=== PATIENT | female | born 1965 | race American Indian/Alaskan Native ===

== ENCOUNTER 2020-03-27 08:13 | Day surgery (SDC) | payer BC ==
[~2020-03-27 08:13] MED LIST: MIDAZOLAM 2 MG/2 ML INJ IV NR; SODIUM CHLORIDE 0.9% 1000 ML 1,000 ML IV SCH; fentaNYL 100 MCG/2 ML INJ IV PRN
[2020-03-27 09:31] LABS: Hematocrit 28.3 % (30.3-42.9); Hemoglobin 9.1 gm/dl (10.1-14.3); Mean Corpuscular HGB Conc 32 % (30-34); Mean Corpuscular Volume 84 fl (79-97); Platelet Count 269 K/mm3 (140-440); Red Blood Count 3.36 M/mm3 (3.65-5.03); Red Cell Distribution Width 17.2 % (13.2-15.2)
[2020-03-27 09:44] LABS: Calcium 8.5 mg/dL (8.4-10.2)
[2020-03-27] MEDS ORDERED: fentaNYL 100 MCG/2 ML INJ IV PRN (09:52)
--- NOTE | 2020-03-27 09:52 | Anesthesia Consultation ---
Anesthesia Consult and Med Hx Date of service: 03/27/20 - Airway Anesthetic Teeth Evaluation: Poor (loose left lower molar) ROM Head & Neck: Adequate Mental/Hyoid Distance: Adequate Mallampati Class: Class III Intubation Access Assessment: Possibly Difficult - Pulmonary Exam CTA: Yes - Cardiac Exam Cardiac Exam: RRR - Pre-Operative Health Status ASA Pre-Surgery Classification: ASA3 Proposed Anesthetic Plan: General - Pulmonary Hx Smoking: Yes (1/2 PPD x25yrs) Hx Respiratory Symptoms: No - Cardiovascular System Hx Hypertension: Yes (took antihypertensives yesterday PM) Hx Heart Attack/AMI: No Hx Percutaneous Transluminal Coronary Angioplasty (PTCA): No Hx Cardia Arrhythmia: No - Central Nervous System CVA: No Hx Back Pain: Yes - Gastrointestinal Hx Gastroesophageal Reflux Disease: No - Endocrine Hx Renal Disease: Yes (CKD stage 5 not yet on HD) Hx Liver Disease: No Hx Insulin Dependent Diabetes: No Hx Non-Insulin Dependent Diabetes: No Hx Thyroid Disease: No - Hematic Hx Anemia: Yes - Other Systems Hx Substance Use: Yes (occasional CBD) Hx Obesity: Yes (BMI 44) - Additional Comments Anesthesia Medical History Comments: No hx anesthetic complications.
--- NOTE | 2020-03-27 09:52 | Anesthesia Day of Surgery ---
Anesthesia Day of Surgery - Day of Surgery Patient Examined: Yes Patient H&P Reviewed: Yes Patient is NPO: Yes
[2020-03-27] MEDS ORDERED: ceFAZolin/STERILE WATER 2 GM/20 ML SYRINGE IV NR (10:00)
[2020-03-27] MEDS ORDERED: LIDOCAINE MPF (2%) 20 MG/1 ML VIAL 5 ML ONE ×2 (12:34→14:21)
[2020-03-27] MEDS ORDERED: fentaNYL 100 MCG/2 ML INJ ONE ×2 (12:34→14:21)
[2020-03-27] MEDS ORDERED: propofoL 200 MG/20 ML VIAL IV ONE ×2 (12:34→14:21)
[2020-03-27] MEDS ORDERED: HEPARIN 10,000 UNITS/10 ML VIAL ONE (12:44)
[2020-03-27] MEDS ORDERED: BUPIVACAINE/PF (0.5%) 5 MG/1 ML 30 ML VIAL INFILTRATI ONE ×2 (12:44→13:35)
[2020-03-27] MEDS ORDERED: SODIUM CHLORIDE 0.9% 500 ML 500 ML ONE (12:45)
[2020-03-27] MEDS ORDERED: SUCCINYLCHOLINE CHLORIDE 200 MG/10 ML INJ MDV ONE (13:26)
[2020-03-27] MEDS ORDERED: dexAMETHasone 20 MG/5 ML VIAL ONE (13:26)
[2020-03-27] MEDS ORDERED: ROCURONIUM 50 MG/5 ML INJ IV ONE ×2 (13:26→14:21)
[2020-03-27] MEDS ORDERED: SODIUM CHLORIDE 0.9% IRR 1,500 ML BOTTLE IR ONE (13:35)
[2020-03-27] MEDS ORDERED: HEPARIN 10,000 UNITS/10 ML VIAL IV ONE (13:36)
[2020-03-27] MEDS ORDERED: SODIUM CHLORIDE 0.9% 500 ML IVPB IRRIGATION ONE (13:36)
--- NOTE | 2020-03-27 14:19 | Short Stay Summary ---
Short Stay Documentation Date of service: 03/27/20 Narrative H&P: See H&P - Allergies and Medications Current Medications: Allergies shellfish derived Allergy (Verified 03/26/20 15:09) Itching, swelling iv dye Allergy (Uncoded 03/26/20 15:09) Anaphylaxis Home Medications Medication Instructions Recorded Confirmed Last Taken Type Acetaminophen 500 mg PO Q8HR 03/27/20 03/27/20 03/20/20 09:00 History Amlodipine Besylate 10 mg PO DAILY 03/27/20 03/27/20 03/26/20 17:00 History Calcitriol 0.5 mg PO DAILY 03/27/20 03/27/20 03/26/20 09:00 History Duloxetine HCl 30 mg PO DAILY 03/27/20 03/27/20 03/26/20 14:00 History Furosemide 40 mg PO PRN 03/27/20 03/27/20 Unknown History Gabapentin 300 mg PO Q6HR 03/27/20 03/27/20 03/20/20 09:00 History Tramadol HCl 50 mg PO Q6HR 03/27/20 03/27/20 03/26/20 21:00 History Valsartan 320 mg PO DAILY 03/27/20 03/27/20 03/26/20 17:00 History Active Medications Cefazolin Sodium (Cefazolin/Sterile Water 2 Gm/20 Ml Syringe) 2 gm IV PREOP NR Stop: 03/27/20 16:00 Fentanyl (Fentanyl 100 Mcg/2 Ml Inj) 50 mcg IV Q5MIN PRN PRN Reason: Pain , Severe (7-10) Sodium Chloride (Nacl 0.9% 1000 Ml) 1,000 mls @ 42 mls/hr IV DIRECT STACI Stop: 03/27/20 23:59 Last Admin: 03/27/20 10:45 Dose: 42 mls/hr Documented by: Midazolam HCl (Midazolam 2 Mg/2 Ml Inj) 2 mg IV PREOP NR Stop: 03/27/20 23:59 - Brief post op/procedure progress note Date of procedure: 03/27/20 Pre-op diagnosis: Chronic Renal Insufficiency Post-op diagnosis: same Procedure: Creation of Left Brachiocephalic Arteriovenous Fistula Anesthesia: GETA Surgeon: LILIANE MATSON Estimated blood loss: minimal Pathology: none Condition: stable - Disposition Condition at discharge: Good Disposition: DC-01 TO HOME OR SELFCARE Short Stay Discharge Plan Activity: other (No heavy lifting with left arm for 2 weeks.) Wound: open to air, keep clean and dry, other (Okay to wash the wound with soap and water but do not soak in water for 2 weeks.) Follow up with: LILIANE MATSON MD [Staff Physician] - 14 Days Prescriptions: HYDROcodone/APAP 7.5-325 [[place] 7.5/325] 1 each PO Q6HR PRN #30 tablet PRN Reason: Pain
[2020-03-27] MEDS ORDERED: ONDANSETRON 4 MG/2 ML INJ ONE ×2 (14:21)
--- NOTE | 2020-03-27 14:21 | Operative Report ---
Operative Report Operative Report: Date of procedure: 03/27/2020 Pre-operative diagnosis: Chronic Renal Sufficiency Post-operative diagnosis: Same Procedure(s): 1. Creation of Left Brachial Artery to Cephalic Vein Arteriovenous Fistula Surgeon: Andrey Martinez MD Educational Manager: None Anesthesia: General Endotracheal Anesthesia EBL: Minimal Counts: Correct Complications: None Condition: Stable Findings: Successful creation of left brachiocephalic arteriovenous fistula with palpable thrill and palpable radial pulse at the completion of the case. Specimen: None Indications: The patient is a 55-year-old male with a history of chronic renal insufficiency who is in need of long-term dialysis access in anticipation of needing dialysis within the next several months. She had a vein mapping that demonstrated she was an adequate candidate for creation of an arteriovenous fistula. She was given the risk, benefits, and alternative procedures of creation of an arteriovenous fistula and consented to the procedure. Description of Procedure: The patient was brought to the operating room and laid in supine position. After general endotracheal anesthesia was achieved A transverse incision was then made and carried down to the cephalic vein using sharp dissection. The vein was dissected out both proximally and distally and suture ligated and divided distally. I then ran a 3 Clara proximally in the vein, to ensure patency of the vein. Then flushed the vein with heparinized saline and flow was controlled with a bulldog clamp. I then dissected out the brachial artery through this incision circumferentially both proximal and distal and controlled the artery with vessel loops. I systemically heparinized the patient with 3000 units of heparin IV and used angled DeBakey clamps to control flow through the artery. I created an arteriotomy using an 11 blade and Gordon scissors. I created an end to side anastomosis between the cephalic vein and brachial artery using a 6-0 Prolene in running fashion. Prior to completing the anastomosis I flushed the artery both proximally and distally and then advanced a 3 Clara proximally to break the spasm in the artery. I then completed the anastomosis and removed all clamps allowing flow into the fistula which had an adequate thrill. I achieved hemostasis with a combination of Quick Clot and electrocautery. Once hemostasis had been achieved I closed the wound in 2 layers using a 3-0 Vicryl in a running fashion in the deep dermal layer and a 4- 0 Monocryl in running fashion in the subcuticular layer. I then dressed the wound with Dermabond. The patient tolerated the procedure well. All sponge, needle, and instrument counts were correct. The patient was taken to the recovery area in stable condition.
[2020-03-27] MEDS ORDERED: HYDROcodone/ACETAMINOPHEN 7.5-325MG TAB PO PRN (14:41)
--- NOTE | 2020-03-27 15:37 | Post Anesthesia Evaluation ---
- Post Anesthesia Evaluation Patient Participated: Yes Airway Patent: Yes Stable Respiratory Function: Yes Nausea/Vomiting: No Temp > 96.8F: Yes Pain Manageable: Yes Adequeate Hydration: Yes Anesthesia Complications: No
[2020-03-27] MEDS ORDERED: PHENYLEPHRINE 10 MG/1 ML INJ SDV ONE (16:00)
[2020-03-27 16:04] VITALS: BP 154/71
== END 2020-03-27 08:14 | disposition home or self-care (01) ==
LOC: OR 08:13
PROVIDERS: ATTEND Surgery Vascular Surgery
DX: I12.0 Hypertensive chronic kidney disease with stage 5 chronic kidney disease or end stage renal disease (principal); N18.6 End stage renal disease; F17.210 Nicotine dependence, cigarettes, uncomplicated; E78.00 Pure hypercholesterolemia, unspecified; E66.9 Obesity, unspecified; M19.90 Unspecified osteoarthritis, unspecified site; Z72.89 Other problems related to lifestyle; Z91.013 Allergy to seafood; Z88.8 Allergy status to other drugs, medicaments and biological substances; Z79.899 Other long term (current) drug therapy; Z90.49 Acquired absence of other specified parts of digestive tract; Z98.890 Other specified postprocedural states; Z98.891 History of uterine scar from previous surgery; Z86.718 Personal history of other venous thrombosis and embolism
CPT/HCPCS: 36415; 36821; 80048; 85027; J0330; J0690; J1100; J1644; J2370; J2405; J2704; J3010; J7030; J7040

== ENCOUNTER 2020-11-13 06:17 | Day surgery (SDC) | payer BC ==
[~2020-11-13 06:17] MED LIST changes: +HEPARIN 10,000 UNITS/10 ML VIAL IV ONE; -MIDAZOLAM 2 MG/2 ML INJ IV NR; -SODIUM CHLORIDE 0.9% 1000 ML 1,000 ML IV SCH; +SODIUM CHLORIDE 0.9% 250 ML IVPB IV ONE; +SODIUM CHLORIDE 0.9% 500 ML IVPB IV ONE; +SODIUM CHLORIDE 0.9% IRR 1,500 ML BOTTLE IR ONE; +SODIUM CHLORIDE 0.9% P/F 10 ML VIAL IV ONE; +ceFAZolin/STERILE WATER 2 GM/20 ML SYRINGE IV NR; -fentaNYL 100 MCG/2 ML INJ IV PRN; +rifAMPin 600 MG VIAL IV ONE
[2020-11-13] MEDS ORDERED: SODIUM CHLORIDE 0.9% 1000 ML 1,000 ML IV SCH (07:00)
[2020-11-13] MEDS ORDERED: LIDOCAINE (1%) 10 MG/1 ML VIAL 20 ML MDV ONE (07:14)
[2020-11-13] MEDS ORDERED: SODIUM CHLORIDE P/F VIAL 10 ML 10 ML ONE (07:14)
[2020-11-13] MEDS ORDERED: rifAMPin 600 MG VIAL ONE (07:14)
[2020-11-13] MEDS ORDERED: BUPIVACAINE/PF (0.5%) 5 MG/1 ML 30 ML VIAL INFILTRATI ONE ×2 (07:14→07:55)
[2020-11-13] MEDS ORDERED: HEPARIN 10,000 UNITS/10 ML VIAL ONE (07:14)
[2020-11-13] MEDS ORDERED: ePHEDrine SULFATE 50 MG/1 ML INJ ONE (07:15)
[2020-11-13] MEDS ORDERED: SODIUM CHLORIDE 0.9% 500 ML 500 ML ONE (07:15)
[2020-11-13] MEDS ORDERED: propofoL 200 MG/20 ML VIAL IV ONE ×7 (07:15→09:37)
[2020-11-13] MEDS ORDERED: SODIUM CHLORIDE 0.9% 250ML 250 ML ONE (07:15)
--- NOTE | 2020-11-13 07:49 | Anesthesia Consultation ---
Anesthesia Consult and Med Hx Date of service: 11/13/20 - Airway Anesthetic Teeth Evaluation: Good ROM Head & Neck: Adequate Mental/Hyoid Distance: Adequate Mallampati Class: Class I Intubation Access Assessment: Probably Good - Pulmonary Exam CTA: Yes - Cardiac Exam Cardiac Exam: RRR - Pre-Operative Health Status ASA Pre-Surgery Classification: ASA3 Proposed Anesthetic Plan: MAC Nerve Block: supraclavicular - Pulmonary Hx Smoking: Yes (CIGARETTES 1/2 PACK/DAY) Hx Respiratory Symptoms: No Hx Sleep Apnea: No - Cardiovascular System Hx Hypertension: Yes Hx Heart Attack/AMI: No Hx Percutaneous Transluminal Coronary Angioplasty (PTCA): No Hx Cardia Arrhythmia: No - Central Nervous System CVA: No Hx Back Pain: Yes (LUMBAR STONDYOLISTHESIS) Hx Psychiatric Problems: No - Gastrointestinal Hx Gastroesophageal Reflux Disease: No - Endocrine Hx Renal Disease: Yes (HD MWF; done yesterday) Hx End Stage Renal Disease: Yes Hx Liver Disease: No Hx Insulin Dependent Diabetes: No Hx Non-Insulin Dependent Diabetes: No Hx Thyroid Disease: No - Hematic Hx Anemia: Yes - Other Systems Hx Alcohol Use: No Hx Substance Use: Yes (SMOKES MARIJUANA EVERY OTHER DAY) Hx Cancer: No Hx Obesity: Yes (BMI 44) - Additional Comments Anesthesia Medical History Comments: No GAC, no FHAC
--- NOTE | 2020-11-13 07:53 | Anesthesia Day of Surgery ---
Anesthesia Day of Surgery - Day of Surgery Patient Examined: Yes Patient H&P Reviewed: Yes Patient is NPO: Yes Beta Blockers: No Cardiac Clearance: No Pulmonary Clearance: No Juve's Test: N/A
[2020-11-13] MEDS ORDERED: MIDAZOLAM 2 MG/2 ML INJ ONE ×2 (07:54→09:23)
[2020-11-13] MEDS ORDERED: fentaNYL 100 MCG/2 ML INJ ONE ×2 (07:55→08:07)
[2020-11-13 07:58] LABS: Hematocrit 33.6 % (30.3-42.9); Hemoglobin 11.4 gm/dl (10.1-14.3); Mean Corpuscular HGB Conc 34 % (30-34); Mean Corpuscular Volume 91 fl (79-97); Platelet Count 231 K/mm3 (140-440); Red Blood Count 3.69 M/mm3 (3.65-5.03); Red Cell Distribution Width 16.9 % (13.2-15.2)
[2020-11-13 08:12] LABS: Calcium 8.7 mg/dL (8.4-10.2)
--- NOTE | 2020-11-13 08:31 | Short Stay Summary ---
Short Stay Documentation Date of service: 11/13/20 Narrative H&P: The patient is a 55-year-old female with a history of end-stage renal disease who had a previous creation of a left brachiocephalic arteriovenous fistula that failed secondary to occlusion of her brachial artery. She had endovascular procedure to revascularize the brachial artery however her fistula was unable to be salvaged. At the time of her initial creation of her fistula she was not on hemodialysis however she has since progressed to hemodialysis and is on dialysis through a right internal jugular permacath. She is now in need of long-term dialysis access and does not have adequate vein for creation of a fistula. She will require creation of an arteriovenous graft and given that she is right-hand dominant this will be placed in her left upper extremity. She was given the risk, benefits, and alternative procedures and consented to the procedure. - History Past Medical History: anemia, diabetes, dialysis, DVT, ESRD, heart failure, hypertension, hyperlipidemia, pulmonary embolism Past Surgical History: Other (Creation of left AVF, Permacath placement) - Allergies and Medications Current Medications: Allergies lisinopril Allergy (Verified 10/30/20 12:53) Swelling shellfish derived Allergy (Verified 10/30/20 12:53) Itching, swelling iv dye Allergy (Uncoded 10/30/20 12:53) Anaphylaxis Home Medications Medication Instructions Recorded Confirmed Last Taken Type Acetaminophen 500 mg PO Q8HR PRN 03/27/20 10/30/20 11/12/20 History Duloxetine HCl 30 mg PO DAILY 03/27/20 10/30/20 11/12/20 History Tramadol HCl 50 mg PO Q8H PRN 03/27/20 10/30/20 11/12/20 History Clopidogrel [Plavix] 75 mg PO QDAY 10/10/20 10/30/20 11/12/20 History Ergocalciferol (Vitamin D2) 1,250 mcg PO 1XW 10/10/20 11/13/20 11/09/20 History [Drisdol] Active Medications Cefazolin Sodium (Cefazolin/Sterile Water 2 Gm/20 Ml Syringe) 2 gm IV PREOP NR Stop: 11/13/20 23:59 Sodium Chloride (Nacl 0.9% 1000 Ml) 1,000 mls @ 42 mls/hr IV DIRECT STACI - Physical exam General appearance: no acute distress Lungs: Normal air movement Breasts: deferred Heart: Regular rate Gastrointestinal: normal Female Genitourinary: deferred Rectal Exam: deferred Extremities: no ischemia, pulses intact - Brief post op/procedure progress note Date of procedure: 11/13/20 Pre-op diagnosis: End-Stage Renal Disease Post-op diagnosis: same Procedure: Creation of Left Brachial Artery to Left Axillary Vein Arteriovenous Graft with 6 mm Bovine Artegraft Anesthesia: MAC, regional Surgeon: LILIANE MATSON Estimated blood loss: minimal Pathology: none Condition: stable - Disposition Condition at discharge: Good Disposition: 01 HOME / SELF CARE / HOMELESS Short Stay Discharge Plan Activity: other (No heavy lifting with left arm for 2 weeks.) Wound: open to air, keep clean and dry, other (Okay to wash the left arm wounds with soap and water but do not soak in water for 2 weeks.) Follow up with: LILIANE MATSON MD [Staff Physician] - 14 Days Prescriptions: HYDROcodone/APAP 5-325 [[place] 5/325] 1 each PO Q4HR PRN #30 tablet PRN Reason: Pain
[2020-11-13] MEDS ORDERED: PHENYLEPHRINE 10 MG/1 ML INJ SDV ONE (09:27)
[2020-11-13] MEDS ORDERED: HEPARIN 10,000 UNITS/10 ML VIAL IV ONE (09:30)
[2020-11-13] MEDS ORDERED: SODIUM CHLORIDE 0.9% 500 ML IVPB IV ONE (09:30)
[2020-11-13] MEDS ORDERED: SODIUM CHLORIDE 0.9% 250 ML IVPB IV ONE (09:30)
[2020-11-13] MEDS ORDERED: rifAMPin 600 MG VIAL IV ONE (09:30)
[2020-11-13] MEDS ORDERED: SODIUM CHLORIDE 0.9% IRR 1,500 ML BOTTLE IR ONE (09:30)
[2020-11-13] MEDS ORDERED: SODIUM CHLORIDE 0.9% P/F 10 ML VIAL IV ONE (09:30)
--- NOTE | 2020-11-13 11:09 | Operative Report ---
Operative Report Operative Report: Date of procedure: 11/13/2020 Pre-operative diagnosis: End-Stage Renal Disease Post-operative diagnosis: Same Procedure(s): 1. Creation of Left Brachial Artery to Axillary Vein AV Graft with 6 mm Bovine Graft Artergraft Surgeon: Andrey Martinez MD Studio Associate: None Anesthesia: Regional/MAC EBL: Minimal Counts: Correct Complications: None Condition: Stable Findings: Successful Creation of Left Arm AV Graft with Palpable Thrill and Palpable Radial Pulse at the Completion of the Case. Specimen: None Indication: The patient is a 55-year-old female with a history of end-stage renal disease who had a previous creation of a left brachiocephalic arteriovenous fistula that failed. She is in need of long-term dialysis access and requires creation of an arteriovenous graft. She was given the risk, benefits, and alternative procedures and consented to the procedure. Description of Procedure: Prior to being transported to the operating room the patient had a regional block of the left arm performed. After the block was performed the patient was transported to the operating room and adequately sedated. The patient's left arm was then prepped and draped in normal sterile fashion. A longitudinal incision was made on the medial aspect of the arm just proximal to the antecubital crease and carried down to the brachial artery using sharp dissection. The brachial artery was dissected out circumferentially both proximally and distally and controlled with vessel loops. A second incision was created in longitudinal fashion on the medial aspect of the arm just distal to the axillary crease and carried down to the axillary vein using sharp dissection. Axillary vein was dissected out circumferentially and controlled with a vessel loop. I then used a Marcela-Wick tunneler to tunnel from the brachial artery incision to the axillary vein incision and then pulled an 6 mm bovine through the tunnel. I infused with heparinized saline to ensure that it was not twisted or kinked. I put the brachial artery vessel loops on tension controlling the flow and then created an arteriotomy using an 11 blade and Gordon scissors. I beveled the graft and created an end-to-side anastomosis using 6-0 Prolene running fashion. I clamped the graft just proximal to the anastomosis and then released the vessel loops restoring flow in the brachial artery. I placed quick clot in incision to achieve hemostasis. I cut the proximal end of the graft to the appropriate length and beveled the graft in preparation for a venous anastomosis. I controlled the axillary vein a Satinsky clamp and created a venotomy using an 11 blade and Gordon scissors. I created an end to side anastomosis using a 6-0 Prolene in running fashion. Prior to completing the anastomosis I flushed the graft to ensure there was no thrombus and then completed the anastamosis. I released all clamps allowing flow into the AV graft which had an excellent thrill. I packed the wound with quick clot to achieve hemostasis. I closed both wounds in 2 layers using 3-0 Vicryl in running fashion in the deep dermal layer and 4-0 Monocryl in running fashion the subcuticular layer. I dressed both wounds with Dermabond. The patient tolerated the procedure well all sponge, needle, and instrument counts were correct. The patient was taken to recovery in stable condition.
[2020-11-13] MEDS ORDERED: ONDANSETRON 4 MG/2 ML INJ IV PRN (11:21)
[2020-11-13] MEDS ORDERED: HYDROmorphone 1 MG/1 ML INJ IV PRN (11:21)
[2020-11-13] MEDS ORDERED: HYDROmorphone 1 MG/1 ML INJ ONE (11:22)
[2020-11-13] MEDS: HYDROmorphone 1 MG/1 ML INJ IV PRN ×3 (11:23→11:43)
[2020-11-13] MEDS ORDERED: HYDROcodone/ACETAMINOPHEN 5-325 MG TAB PO PRN (12:00)
[2020-11-13 12:13] VITALS: BP 119/77
--- NOTE | 2020-11-13 15:30 | Post Anesthesia Evaluation ---
- Post Anesthesia Evaluation Patient Participated: Yes Airway Patent: Yes Stable Respiratory Function: Yes Nausea/Vomiting: No Temp > 96.8F: Yes Pain Manageable: Yes Adequeate Hydration: Yes Anesthesia Complications: No Block Receding Appropriately: Yes Patient on Ventilator: No
== END 2020-11-13 12:55 | disposition home or self-care (01) ==
LOC: OR 06:17
PROVIDERS: ATTEND Surgery Vascular Surgery
DX: I12.0 Hypertensive chronic kidney disease with stage 5 chronic kidney disease or end stage renal disease (principal); N18.6 End stage renal disease; E78.00 Pure hypercholesterolemia, unspecified; E66.9 Obesity, unspecified; M06.9 Rheumatoid arthritis, unspecified; F17.210 Nicotine dependence, cigarettes, uncomplicated; Z90.49 Acquired absence of other specified parts of digestive tract; Z98.890 Other specified postprocedural states; Z79.899 Other long term (current) drug therapy; Z91.013 Allergy to seafood; Z88.8 Allergy status to other drugs, medicaments and biological substances; Z68.41 Body mass index [BMI] 40.0-44.9, adult
CPT/HCPCS: 36415; 36830; 80048; 85027; C1768; J0690; J1170; J1644; J2250; J2370; J2704; J3010; J3490; J7030; J7040; J7050

== ENCOUNTER 2021-06-11 07:40 | Day surgery (SDC) | payer BC, MEDICAID ==
[~2021-06-11 07:40] MED LIST changes: +BUPIVACAINE/PF (0.5%) 5 MG/1 ML 30 ML VIAL INFILTRATI ONE; -HEPARIN 10,000 UNITS/10 ML VIAL IV ONE; +HEPARIN 10,000 UNITS/10 ML VIAL ONE; +LIDOCAINE (1%) 10 MG/1 ML VIAL 20 ML MDV ONE; -SODIUM CHLORIDE 0.9% 250 ML IVPB IV ONE; +SODIUM CHLORIDE 0.9% 250ML 0 ML ONE; +SODIUM CHLORIDE 0.9% 500 ML 500 ML ONE; -SODIUM CHLORIDE 0.9% 500 ML IVPB IV ONE; -SODIUM CHLORIDE 0.9% IRR 1,500 ML BOTTLE IR ONE; -SODIUM CHLORIDE 0.9% P/F 10 ML VIAL IV ONE; -rifAMPin 600 MG VIAL IV ONE
[2021-06-11 08:14] LABS: Hematocrit 36.3 % (30.3-42.9); Hemoglobin 11.6 gm/dl (10.1-14.3); Mean Corpuscular HGB Conc 32 % (30-34); Mean Corpuscular Volume 93 fl (79-97); Platelet Count 294 K/mm3 (140-440); Red Cell Distribution Width 17.2 % (13.2-15.2)
[2021-06-11] MEDS ORDERED: HYDROmorphone 1 MG/1 ML INJ ONE (08:19)
[2021-06-11] MEDS ORDERED: propofoL 200 MG/20 ML VIAL IV ONE ×2 (08:19→09:00)
[2021-06-11] MEDS ORDERED: SODIUM CHLORIDE 0.9% 1000 ML 1,000 ML ONE (08:20)
[2021-06-11] MEDS ORDERED: LIDOCAINE MPF (2%) 20 MG/1 ML VIAL 5 ML ONE (08:20)
[2021-06-11] MEDS ORDERED: HYDROmorphone 1 MG/1 ML INJ IV PRN ×2 (08:21→08:30)
--- NOTE | 2021-06-11 08:22 | Anesthesia Day of Surgery ---
Anesthesia Day of Surgery - Day of Surgery Patient Examined: Yes Patient H&P Reviewed: Yes Patient is NPO: Yes
--- NOTE | 2021-06-11 08:23 | Short Stay Summary ---
Short Stay Documentation Date of service: 06/11/21 Narrative H&P: The patient is a 56-year-old female with a history of end-stage renal disease who presented to the office with a thrombosed left arm arteriovenous graft. She had an attempted percutaneous mechanical thrombectomy however there was such a heavy thrombus burden that it was felt that she would benefit from a revision with open thrombectomy. She had a right internal jugular permacath placed with the plan for revision and open thrombectomy. At this time she is undergoing dialysis without any additional complications. She has no complaints at this time. - History Past Medical History: anemia, DVT, ESRD, hypertension, hyperlipidemia, pulmonary embolism, other (Hypercoagulable disorder) Past Surgical History: Other (Creation of left brachiocephalic arteriovenous fistula, creation of left brachial artery to left axillary vein arteriovenous graft, multiple permacath placements) - Allergies and Medications Current Medications: Allergies lisinopril Allergy (Verified 06/07/21 11:31) Swelling shellfish derived Allergy (Verified 06/07/21 11:31) Itching, swelling iv dye Allergy (Severe, Uncoded 06/07/21 11:31) Anaphylaxis Home Medications Medication Instructions Recorded Confirmed Last Taken Type Acetaminophen 500 mg PO Q8HR PRN 03/27/20 06/07/21 11/12/20 History Duloxetine HCl 30 mg PO DAILY 03/27/20 06/07/21 11/12/20 History Clopidogrel [Plavix] 75 mg PO QDAY 10/10/20 06/07/21 11/12/20 History Ergocalciferol (Vitamin D2) 1,250 mcg PO 1XW 10/10/20 06/07/21 11/09/20 History [Drisdol] Apixaban [Eliquis] 2.5 mg PO BID 06/07/21 06/07/21 Unknown History Calcium Acetate 667 mg PO TID 06/07/21 06/07/21 Unknown History Cinacalcet HCl [Sensipar] 90 mg PO DAILY 06/07/21 06/07/21 Unknown History Active Medications Cefazolin Sodium (Cefazolin/Sterile Water 2 Gm/20 Ml Syringe) 2 gm IV PREOP NR Stop: 06/11/21 23:59 - Physical exam General appearance: no acute distress Lungs: Normal air movement Breasts: deferred Heart: Regular rate Gastrointestinal: normal Female Genitourinary: deferred Rectal Exam: deferred Extremities: abnormal (Left arm arteriovenous graft without palpable pulse or thrill) - Brief post op/procedure progress note Date of procedure: 06/11/21 Pre-op diagnosis: Complications of Dialysis Access Post-op diagnosis: same Procedure: Open Revision of Left Arm Arteriovenous Graft with Revision of the Arterial Anastomosis with Bovine Pericardial Patch and Open Thrombectomy with 6/10 Adherent Graft Thrombectomy Catheter and 4 Clara Anesthesia: GETA Surgeon: LILIANE MATSON Estimated blood loss: other (200 mL) Pathology: list (Thrombus from left arm arteriovenous graft) Specimen disposition: discarded Condition: stable - Disposition Condition at discharge: Good Disposition: 01 HOME / SELF CARE / HOMELESS Short Stay Discharge Plan Activity: other (No heavy lifting with left arm for 2 weeks.) Wound: open to air, keep clean and dry, other (Okay to wash the left arm incision with soap and water but do not soak in water for 2 weeks.) Follow up with: LILIANE MATSON MD [Staff Physician] - 14 Days Prescriptions: HYDROcodone/APAP 7.5-325 [[place] 7.5/325] 1 each PO Q6HR PRN #30 tablet PRN Reason: Pain
--- NOTE | 2021-06-11 08:24 | Anesthesia Consultation ---
Anesthesia Consult and Med Hx Date of service: 06/11/21 - Airway Anesthetic Teeth Evaluation: Good ROM Head & Neck: Adequate Mental/Hyoid Distance: Adequate Mallampati Class: Class II Intubation Access Assessment: Good - Pre-Operative Health Status ASA Pre-Surgery Classification: ASA3 Proposed Anesthetic Plan: General - Pulmonary Hx Smoking: Yes (6 CIGARETTES/DAY) Hx Respiratory Symptoms: No Hx Sleep Apnea: No - Cardiovascular System Hx Hypertension: Yes (In the past) Hx Heart Attack/AMI: No Hx Percutaneous Transluminal Coronary Angioplasty (PTCA): No Hx Cardia Arrhythmia: No Hx Peripheral Vascular Disease: Yes (DVTs) - Central Nervous System CVA: No Hx Back Pain: Yes (LUMBAR STONDYOLISTHESIS) Hx Psychiatric Problems: No - Gastrointestinal Hx Gastroesophageal Reflux Disease: No - Endocrine Hx Renal Disease: Yes (HD MWF; done yesterday) Hx End Stage Renal Disease: Yes Hx Liver Disease: No Hx Insulin Dependent Diabetes: No Hx Non-Insulin Dependent Diabetes: No Hx Thyroid Disease: No - Hematic Hx Anemia: Yes Hx Sickle Cell Disease: No - Other Systems Hx Alcohol Use: Yes (RARELY) Hx Substance Use: No Hx Cancer: No Hx Obesity: Yes (BMI 42) - Additional Comments Anesthesia Medical History Comments: Here [id number] and [id number]
[2021-06-11] MEDS ORDERED: rifAMPin 600 MG VIAL ONE (08:26)
[2021-06-11 08:33] LABS: Calcium 7.9 mg/dL (8.4-10.2)
[2021-06-11] MEDS ORDERED: ONDANSETRON 4 MG/2 ML INJ IV PRN (09:00)
[2021-06-11] MEDS ORDERED: SODIUM CHLORIDE 0.9% 1000 ML 1,000 ML IV SCH (09:00)
[2021-06-11] MEDS ORDERED: MIDAZOLAM 2 MG/2 ML INJ IV NR (09:00)
[2021-06-11] MEDS ORDERED: PHENYLEPHRINE/NS 1,000 MCG/10 ML SYRINGE (OR USE) IV ONE (09:03)
[2021-06-11] MEDS ORDERED: BUPIVACAINE/PF (0.5%) 5 MG/1 ML 30 ML VIAL INFILTRATI ONE (09:29)
[2021-06-11] MEDS ORDERED: SODIUM CHLORIDE 0.9% IRR 1,500 ML BOTTLE IR ONE (09:29)
[2021-06-11] MEDS ORDERED: SODIUM CHLORIDE 0.9% 500 ML IVPB IRRIGATION ONE (09:29)
[2021-06-11] MEDS ORDERED: HEPARIN 10,000 UNITS/10 ML VIAL IV ONE (09:29)
[2021-06-11] MEDS ORDERED: ONDANSETRON 4 MG/2 ML INJ ONE (10:44)
--- NOTE | 2021-06-11 11:01 | Operative Report ---
Operative Report Operative Report: Date of Procedure: 06/11/2021 Pre-operative Diagnosis: Complications of Dialysis Access Post-operative Diagnosis: Same Procedure(s): 1. Open Revision of Left Arm Arteriovenous Graft with Revision of the Arterial Anastomosis with Bovine Pericardial Patch and Open Thrombectomy with 6/10 Adherent Graft Thrombectomy Catheter and 4 Clara Surgeon: Andrey Martinez M.D. Strategic Communications Manager: None Anesthesia: General Endotracheal Anesthesia EBL: 200 mL Counts: Correct Complications: None Condition: Stable Findings: Palpable thrill in left arm arteriovenous graft at the completion of the case. Specimen: Thrombus from the left arm arteriovenous graft was discarded. Indication: The patient is a 56-year-old female with a history of end-stage renal disease who has a left arm arteriovenous graft that thrombosed approximate 1 week ago. She had an attempted percutaneous mechanical thrombectomy that was unsuccessful secondary to the heavy thrombus burden. It was felt that she would benefit from an open thrombectomy. She had a permacath placed for dialysis access and was set up for the procedure. She was given the risk, benefits, and alternative procedures and consented to the procedure. Description of Procedure: The patient was brought to the operating room and laid in supine position. After timeout was performed her left arm was prepped and draped in normal sterile fashion. A longitudinal incision was created on the medial aspect of the arm, near the arterial anastomosis, and carried down to the graft using sharp dissection. The graft was dissected circumferentially approximately 4 cm above the arterial anastomosis a controlled with a vessel loop. The brachial artery was then dissected both proximal and distal to the arterial anastomosis and then controlled with Vesseloops. At this point this patient was systemically heparinized with 3000 units of heparin IV. The brachial artery both proximal and distal to the anastomosis was then controlled with Vesseloops and then an incision was made in the graft using an 11 blade and Gordon scissors. A 6/10 Clara Adherent Graft Thrombectomy Catheter was then advanced into the venous outflow and several passes were made, retrieving thrombus, into the past were free of thrombus and there was adequate venous backbleeding. At that point the graft was flushed with heparinized saline and clamped with a DeBakey clamp. I then used a 4 Clara and retrieved thrombus from the arterial anastomosis however I was unable to pass it into the distal artery. At that point I used a Gordon to extend the graftotomy onto the brachial artery and revealed what appeared to be organized chronic thrombus with near total occlusion of distal portion of the anastomosis. I used a [place] to remove this from the artery and at that point there was adequate backbleeding. I flushed the distal brachial artery with heparinized saline and reclamped the artery and then used a bovine pericardial patch to close the graftotomy using two 6-0 Prolene's in running fashion. Prior to completing the anastomosis I flashed the venous outflow of the graft as well as the brachial artery both proximal distal to the anastomosis and the reclamped all vessels. I flushed the graft with heparinized saline to clear any debris. I completed the closure and then released all clamps allowing flow into the graft which had a palpable thrill. Hemostasis within the wound was achieved with a combination of direct pressure and cautery. Once hemostasis was achieved I anesthetized the wound with 0.5% Marcaine and then closed in 2 layers using 3-0 Vicryl running fashion in the deep dermal layer and 4-0 Monocryl in running fashion the subcuticular layer and then dressed with Dermabond. The patient tolerated the procedure well. All sponge, needle, and instrument counts were correct. The patient was taken to the recovery area in stable condition.
--- NOTE | 2021-06-11 12:20 | Post Anesthesia Evaluation ---
- Post Anesthesia Evaluation Patient Participated: Yes Airway Patent: Yes Stable Respiratory Function: Yes Nausea/Vomiting: No Temp > 96.8F: Yes Pain Manageable: Yes Adequeate Hydration: Yes Anesthesia Complications: No Block Receding Appropriately: Not Applicable Patient on Ventilator: No
[2021-06-11 16:19] VITALS: BP 104/62
== END 2021-06-11 07:41 | disposition home or self-care (01) ==
LOC: OR 07:40
PROVIDERS: ATTEND Surgery Vascular Surgery
DX: T82.868A Thrombosis due to vascular prosthetic devices, implants and grafts, initial encounter (principal); I12.0 Hypertensive chronic kidney disease with stage 5 chronic kidney disease or end stage renal disease; N18.6 End stage renal disease; E78.00 Pure hypercholesterolemia, unspecified; E66.9 Obesity, unspecified; M06.9 Rheumatoid arthritis, unspecified; F17.210 Nicotine dependence, cigarettes, uncomplicated; D64.9 Anemia, unspecified; Z72.89 Other problems related to lifestyle; Z79.899 Other long term (current) drug therapy; Z91.013 Allergy to seafood; Z90.49 Acquired absence of other specified parts of digestive tract; Z86.718 Personal history of other venous thrombosis and embolism; Z98.891 History of uterine scar from previous surgery; Z98.890 Other specified postprocedural states; Y82.9 Unspecified medical devices associated with adverse incidents; Y92.89 Other specified places as the place of occurrence of the external cause
CPT/HCPCS: 36415; 36832; 80048; 85027; C1757; C1768; J0690; J1170; J1644; J2370; J2405; J2704; J3490; J7030; J7040; J7120; Q0162; J7050